=== PATIENT | female | born 1980 | race African-American/Black ===

== ENCOUNTER 2023-04-25 22:56 | Emergency (ER) | payer OTHER, SELFPAY ==
[2023-04-25] VITALS (7 sets, daily range): BP systolic 152; BP diastolic 97; PULSE 81–90; RESP 15–23; TEMP 37; O2SAT 100; BMI 25.5
--- NOTE | 2023-04-25 23:44 | XR_ITS ---
[facility] [id number] Patient Name: SAJI ESTRELLA MRN: [id number] date: 1980 Sex: F Assigned Patient Location: ER Current Patient Location: ER Accession/Order Number: [id number] Exam Date: 04/25/2023 23:59 Report Date: 04/26/2023 00:28 At the request of: DORIAN LUQUE Procedure: XR chest 1V EXAMINATION: XR chest 1V HISTORY: chest pain COMPARISON: No relevant comparison available. FINDINGS: LUNGS: Mild opacities within the lung bases obscuring the bronchovascular markings. VASCULATURE: No increased pulmonary vasculature. PLEURA: No pneumothorax, effusion, or pleural thickening. CARDIAC: No cardiomegaly or cardiac silhouette abnormality. MEDIASTINUM: No visible mass or adenopathy. BONES: No fracture or visible bone lesion. OTHER: Negative. XR/XR chest 1V IMPRESSION: 1. Mild bibasilar infiltrates versus atelectasis. Electronically authenticated by: HUSSEIN GASTELUM Date: 04/26/2023 00:28
--- NOTE | 2023-04-25 23:44 | ECG_ITS ---
[facility] Test Date: 2023-04-25 Pat Name: SAJI ESTRELLA Department: Room: - Gender: Female [employer] Operator: : 1980 Requested By: [id number] Order Number: [id number] Reading MD: COLTON PRITCHETT Measurements Intervals [place] Rate: 93 P: 65 IL: 144 QRS: 66 QRSD: 84 T: 60 QT: 372 QTc: 422 Interpretive Statements 1100 Sinus rhythm 9110 normal ECG No previous ECG available for comparison Electronically Signed On 04-26-2023 6:58:38 EST by COLTON PRITCHETT
[2023-04-25 23:57] LABS: Basophils Absolute Auto 0.1 10^3/uL (0.0-0.1); Basophils Percent Auto 0.5 % (0.2-2.0); Eosinophils Absolute Auto 0.3 10^3/uL (0.0-0.7); Hemoglobin 8.3 g/dL (12.0-16.0); Immature Granulocytes Abs Auto 0.04 10^3/uL (0.00-0.03); Immature Granulocytes Pct Auto 0.4 % (0.0-0.5); Lymphocytes Absolute Auto 2.7 10^3/uL (1.2-3.8); Mean Corpuscular HGB Conc 28.6 g/dL (29.9-35.2); Mean Corpuscular Hemoglobin 22.3 pg (26.7-34.0); Mean Corpuscular Volume 77.7 fL (81.0-99.0); Mean Platelet Volume 9.5 fL (9.5-13.5); Monocytes Absolute Auto 0.9 10^3/uL (0.3-0.8); Monocytes Percent Auto 8.3 % (1.7-12.0); Neutrophils Absolute Auto 6.9 10^3/uL (1.4-6.5); Neutrophils Percent Auto 62.8 % (43.0-75.0); Platelet Count 667 10^3/uL (150-450); Red Blood Count 3.73 10^6/uL (4.20-5.40); Red Cell Distribution Width 16.8 % (11.0-15.0); White Blood Count 10.9 10^3/uL (4.0-11.0)
[2023-04-26] VITALS (13 sets, daily range): BP systolic 109–134; BP diastolic 85–89; PULSE 81–99; RESP 16–25; O2SAT 98–100
[2023-04-26 00:16] LABS: Alanine Aminotransferase 24 U/L (14-59); Albumin Globulin Ratio 0.9; Albumin Level 3.6 g/dL (3.4-5.0); Alkaline Phosphatase 104 U/L (46-116); Anion Gap 11.4; Aspartate Amino Transferase 26 U/L (15-37); BUN Creatinine Ratio 17.9; Bilirubin Total <0.1 mg/dL (0.2-1.0); Calcium 8.8 mg/dL (8.5-10.1); Carbon Dioxide 26.5 mmol/L (21.0-32.0); Chloride 102 mmol/L (98-107); Estimated GFR (African America >60 (>=60); Estimated GFR (Non-African Ame >60 (>=60); Globulin 4.1 g/dL; Glucose 84 mg/dL (74-106); Potassium 3.9 mmol/L (3.5-5.1); Sodium 136 mmol/L (136-145); Total Protein 7.7 g/dL (6.4-8.2); Troponin I High Sensitivity <4.0 pg/mL (4.0-51.3)
--- NOTE | 2023-04-26 00:31 | ED_ITS ---
HPI - Arrhythmia/Palpitations General Chief Complaint: Arrhythmia/Palpitations Stated Complaint: CHEST PAIN Time Seen by Provider: 04/26/23 00:16 History of Present Illness HPI narrative: patient is an alcoholic . She has not had a drink in 30 days and is at the recovery center. [facility] staff have checked her and her heart rate has been high at times and she is here to get checked. no chest pain or light headiness. MD complaint: Reports rapid heart beat and heart racing Related Data Home Medications Medication Instructions Recorded Confirmed No Known Home Medications 04/25/23 04/25/23 Allergies Allergy/AdvReac Type Severity Reaction Status Date / Time No Known Drug Allergies Allergy Verified 04/25/23 23:09 Review of Systems ROS Status of ROS 10 or more systems reviewed and unremarkable except as noted in history and below Exam Constitutional Vital Signs, click to edit/add: Last Vital Signs Temp 98.6 F 04/25/23 23:06 Pulse 89 04/25/23 23:06 Resp 15 04/25/23 23:06 BP 152/97 H 04/25/23 23:06 Pulse Ox 100 04/25/23 23:06 O2 Del Method Room Air 04/25/23 23:06 Common normals: no apparent distress, average body habitus, oriented x3, no limitations, healthy appearing and alert Eye Common normals: EOMs intact bilaterally and conjunctivae normal Respiratory Common normals: normal respiratory effort, no retractions and no use of accessory muscles Cardio Common normals: regular rate, regular rhythm, S1 normal heart sound and S2 normal heart sound GI Common normals: Normal to inspection, nondistended, normoactive bowel sounds present and soft to palpation Extremity Common normals: normal to inspection and full ROM Neuro Common normals: oriented x3, CN's II-XII intact bilaterally, moves all extremities and no focal motor deficits Psych Appearance: grossly normal Course Vital Signs Vital signs: Vital Signs Temperature 98.6 F 04/25/23 23:06 Pulse Rate 89 04/25/23 23:06 Respiratory Rate 15 04/25/23 23:06 Blood Pressure 152/97 H 04/25/23 23:06 Pulse Oximetry 100 04/25/23 23:06 Oxygen Delivery Method Room Air 04/25/23 23:06 Temperature 98.6 F 04/25/23 23:06 Pulse Rate 89 04/25/23 23:06 Respiratory Rate 15 04/25/23 23:06 Blood Pressure 152/97 H 04/25/23 23:06 Pulse Oximetry 100 04/25/23 23:06 Oxygen Delivery Method Room Air 04/25/23 23:06 MDM - Arrhythmia/Palpitations MDM Narrative Medical decision making narrative: patient presents complaining of episodes of heart racing. No evidence of arrhythmia while here in the department. Troponin and d-dimer neg. cxray without acute changes and EKG normal. Patient discharged home and advised to continue workup as an out patient. States she will remain at [facility] for another week but then she returns home and can see a doctor there Lab Data Labs: Lab Results 04/25/23 04/26/23 Range/Units 23:28 00:44 WBC 10.9 (4.0-11.0) 10^3/uL RBC 3.73 L (4.20-5.40) 10^6/uL Hgb 8.3 L (12.0-16.0) g/dL Hct 29.0 L (36.0-48.0) % MCV 77.7 L (81.0-99.0) fL MCH 22.3 L (26.7-34.0) pg MCHC 28.6 L (29.9-35.2) g/dL RDW 16.8 H (11.0-15.0) % Plt Count 667 H (150-450) 10^3/uL MPV 9.5 (9.5-13.5) fL Neut % (Auto) 62.8 (43.0-75.0) % Lymph % (Auto) 25.0 (20.5-60.0) % [place] % (Auto) 8.3 (1.7-12.0) % Eos % (Auto) 3.0 (0.9-7.0) % Baso % (Auto) 0.5 (0.2-2.0) % Neut # (Auto) 6.9 H (1.4-6.5) 10^3/uL Lymph # (Auto) 2.7 (1.2-3.8) 10^3/uL [place] # (Auto) 0.9 H (0.3-0.8) 10^3/uL Eos # (Auto) 0.3 (0.0-0.7) 10^3/uL Baso # (Auto) 0.1 (0.0-0.1) 10^3/uL Abs Immat Gran (auto) 0.04 H (0.00-0.03) 10^3/uL Imm/Tot Granulo (auto) 0.4 (0.0-0.5) % D-Dimer 0.31 (<=0.59) mg/L FEU Sodium 136 (136-145) mmol/L Potassium 3.9 (3.5-5.1) mmol/L Chloride 102 (98-107) mmol/L Carbon Dioxide 26.5 (21.0-32.0) mmol/L Anion Gap 11.4 BUN 12.0 (7.0-18.0) mg/dL Creatinine 0.67 (0.55-1.02) mg/dL Est GFR ( Amer) >60 (>=60) Est GFR (Non-Af Amer) >60 (>=60) BUN/Creatinine Ratio 17.9 Glucose 84 (74-106) mg/dL Calcium 8.8 (8.5-10.1) mg/dL Total Bilirubin <0.1 L (0.2-1.0) mg/dL AST 26 (15-37) U/L ALT 24 (14-59) U/L Alkaline Phosphatase 104 (46-116) U/L Troponin I High Sens <4.0 L (4.0-51.3) pg/mL Total Protein 7.7 (6.4-8.2) g/dL Albumin 3.6 (3.4-5.0) g/dL Globulin 4.1 g/dL Albumin/Globulin Ratio 0.9 Discharge Plan Discharge Chief Complaint: Arrhythmia/Palpitations Clinical Impression: Tachycardia Patient Disposition: Home, Self-Care Prescriptions / Home Meds: No Action No Known Home Medications Instructions: Tachycardia (ED) Additional Instructions: followup with cardiology next week when you get home or with your family doctor to continue workup Stand Alone Forms: Portal Instructions Referrals: Physician,Non-Staff, MD [Primary Care Provider] - 1 week
--- NOTE | 2023-04-26 00:35 | PC.NURSE ---
patient in [facility] for alcohol abuse. patient states she has been having increased blood pressure and heart rate for approx 3 days. states highest blood pressure at the facility waas 150 systolic with heart rates in the 90's. intermittent chest pressure on left side radiating to left jaw and left arm. now resolved.
[2023-04-26 00:55] LABS: D Dimer 0.31 mg/L FEU (<=0.59)
== END 2023-04-26 02:09 | disposition home or self-care (01) ==
PROVIDERS: Emergency Provider Internal Medicine
DX: R00.0 Tachycardia, unspecified (principal); F10.20 Alcohol dependence, uncomplicated
CPT/HCPCS: 36415; 71045; 80053; 84484; 85025; 85378; 93005; 99285